=== PATIENT | female | born 1950 | race American Indian/Alaskan Native ===

== ENCOUNTER 2019-06-20 16:32 | Emergency (ER) | payer OTHER, MEDICARE ==
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
--- NOTE | 2019-06-20 17:45 | XRay Report ---
CHEST 2 VIEWS INDICATION / CLINICAL INFORMATION: chest pain. COMPARISON: None available. FINDINGS: SUPPORT DEVICES: None. HEART / MEDIASTINUM: Heart size is normal. Atherosclerotic changes are seen in the thoracic aorta. LUNGS / PLEURA: No significant pulmonary or pleural abnormality. No pneumothorax. ADDITIONAL FINDINGS: No significant additional findings. IMPRESSION: 1. No acute findings. Signer Name: Dilshad Ma MD Signed: 06/20/2019 5:40 PM Workstation Name: [id number]
--- NOTE | 2019-06-20 17:47 | XRay Report ---
CERVICAL SPINE, AP AND LATERAL VIEWS 06/20/2019 INDICATION / CLINICAL INFORMATION: neck pain. COMPARISON: None available. FINDINGS: No evidence of acute fracture. No subluxation. Moderately advanced degenerative changes are seen from C3 for through C6. Signer Name: Dilshad Ma MD Signed: 06/20/2019 5:43 PM Workstation Name: [id number]
[2019-06-20] MEDS ORDERED: TYLENOL PO ONE (19:35)
[2019-06-20] MEDS ORDERED: IBUPROFEN PO ONE (19:35)
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
[2019-06-20 21:06] VITALS: BP 154/78
== END 2019-06-20 21:06 | disposition home or self-care (01) ==
LOC: ED 16:32
DX: S29.011A Strain of muscle and tendon of front wall of thorax, initial encounter (principal); M62.838 Other muscle spasm; I10 Essential (primary) hypertension; V49.59XA Passenger injured in collision with other motor vehicles in traffic accident, initial encounter; Y93.89 Activity, other specified; Y92.488 Other paved roadways as the place of occurrence of the external cause; Y99.8 Other external cause status
CPT/HCPCS: 71046; 72040